=== PATIENT | male | born 1945 ===

== ENCOUNTER 2019-03-18 12:09 | Emergency (ER) | payer MEDICAID ==
[~2019-03-18] VITALS: Ht 167.6 cm; Wt 77.3 kg
[2019-03-18] MEDS ORDERED: VALS40TA4 PO (12:31)
[2019-03-18] MEDS ORDERED: TAMS-1 PO (12:31)
[2019-03-18] MEDS ORDERED: AMLO2.5T4 PO (12:31)
[2019-03-18] MEDS ORDERED: ASPI81 PO (12:31)
[2019-03-18 13:08] VITALS: BP 139/89
[2019-03-18] MEDS ORDERED: PRAMOXINE HCL/BENZYL ALCOHOL 1% 35 GM GEL TP ONE (13:30)
== END 2019-03-18 14:24 | disposition home or self-care (01) ==
LOC: EMS 12:14
DX: R21 Rash and other nonspecific skin eruption (principal); Z79.82 Long term (current) use of aspirin; Z79.899 Other long term (current) drug therapy